=== PATIENT | female | born 1945 | race Caucasian/White ===

== ENCOUNTER 2017-09-25 13:58 | Emergency (ER) | payer OTHER, BC ==
[~2017-09-25 13:58] MED LIST: AMBIEN10 MG PO; METAXALONE800 MG PO; MOTRIN800 MG PO
== END 2017-09-25 15:11 | disposition left against medical advice (07) ==
LOC: EME 13:58
DX: Z04.6 Encounter for general psychiatric examination, requested by authority (principal); Z53.21 Procedure and treatment not carried out due to patient leaving prior to being seen by health care provider